=== PATIENT | female | born 1960 | race Caucasian/White ===

== ENCOUNTER 2025-04-03 10:04 | Outpatient (CLI) | payer BC ==
[2025-04-03 11:16] LABS: #Basophils 0.05 10x3/uL (0.0-0.2); #Eosinophils 0.08 10x3/uL (0.0-0.5); #Monocytes 0.53 10x3/uL (0.0-1.1); #Neutrophils 2.57 10x3/uL (1.5-8.4); %Basophils 1.1 % (0.0-2.0); %Eosinophils 1.8 % (0.0-6.0); %Lymphocytes 27.8 % (18.0-47.0); %Monocytes 11.8 % (0.0-10.0); %Neutrophils 57.3 % (40.0-75.0); Hematocrit 41.9 % (34.9-44.5); Hemoglobin 13.6 g/dL (12.0-15.5); Mean Corpuscular Hemoglobin 29.6 pg (27.0-33.0); Mean Corpuscular Volume 91.1 fL (81.6-98.3); Platelet Count 361 10x3/uL (150-450); Red Blood Cell (RBC) Count 4.60 10x6/uL (3.90-5.03); White Blood Cell (WBC) Count 4.49 10x3/uL (3.5-10.5)
[2025-04-03 11:50] LABS: ALT (SGPT) 9 U/L (Less than 34); AST (SGOT) 15 U/L (11-34); Albumin 3.6 g/dL (3.1-4.5); Alkaline Phosphatase 114 U/L (40-110); Anion Gap 10 mmol/L (10-20); BUN (Urea Nitrogen) 17 mg/dL (9.8-20.1); Bilirubin, Total 0.5 mg/dL (0.3-1.2); Calc. Creatinine Clearance 0 mL/min (70-130); Calcium 9.0 mg/dL (7.8-10.44); Carbon Dioxide 27 mmol/L (23-31); Chloride 108 mmol/L (98-107); Globulin 2.8 g/dL (2.4-3.5); Glucose 82 mg/dL (80-115); Potassium 4.2 mmol/L (3.5-5.1); Sodium 141 mmol/L (136-145)
[2025-04-03 12:08] LABS: Ferritin 20.89 ng/mL (10-291); Free T4 (Free Thyroxine) 0.97 ng/dL (0.70-1.48); Thyroid Stimulating Hormone 0.4183 uIU/mL (0.35-4.94)
== END 2025-04-03 10:05 | disposition home or self-care (01) ==
LOC: CSHLAB 10:04
PROVIDERS: ATTEND Otolaryngology Plastic Surgery within the Head & Neck
DX: Z01.818 Encounter for other preprocedural examination (principal); E21.3 Hyperparathyroidism, unspecified; D35.1 Benign neoplasm of parathyroid gland
CPT/HCPCS: 80053; 82728; 83970; 84439; 84443; 84481; 93005; 93010